=== PATIENT | female | born 1990 | race Caucasian/White ===

== ENCOUNTER 2020-07-03 14:56 | Emergency (ER) | payer OTHER ==
[~2020-07-03] VITALS: Ht 160 cm; Wt 78.0 kg
[2020-07-03 19:32] VITALS: BP 124/84
== END 2020-07-03 20:06 | disposition home or self-care (01) ==
LOC: EMS 15:08
DX: Z11.1 Encounter for screening for respiratory tuberculosis (principal)
CPT/HCPCS: 99283; 71045-TC